=== PATIENT | female | born 1990 | race Caucasian/White ===

== ENCOUNTER 2016-12-29 19:31 | Emergency (ER) | payer MEDICAID ==
[2016-12-30 01:01] VITALS: BP 100/63
== END 2016-12-30 01:01 | disposition home or self-care (01) ==
LOC: ED 19:31
DX: R07.89 Other chest pain (principal); F41.9 Anxiety disorder, unspecified; Z86.11 Personal history of tuberculosis
CPT/HCPCS: J1885; Q0092

== ENCOUNTER 2017-09-17 13:44 | Emergency (ER) | payer MEDICAID ==
[2017-09-17 15:29] VITALS: BP 102/65
== END 2017-09-17 15:30 | disposition home or self-care (01) ==
LOC: ED 13:44
DX: S76.912A Strain of unspecified muscles, fascia and tendons at thigh level, left thigh, initial encounter (principal); H66.91 Otitis media, unspecified, right ear; X58.XXXA Exposure to other specified factors, initial encounter; Y93.89 Activity, other specified; Y92.89 Other specified places as the place of occurrence of the external cause; Y99.8 Other external cause status
CPT/HCPCS: J1885